=== PATIENT | male | born 1970 | race Caucasian/White ===

== ENCOUNTER 2025-01-16 09:27 | Observation (INO) | payer BC ==
[~2025-01-16] VITALS: Ht 180.3 cm; Wt 89.1 kg
[2025-01-16 10:18] LABS: BASOPHILS ABSOLUTE AUTO 0.05 K/mm3 (0.00-0.23); BASOPHILS PERCENT AUTO 1 % (0-2); EOSINOPHILS ABSOLUTE AUTO 0.13 K/mm3 (0.00-0.68); EOSINOPHILS PERCENT AUTO 2 % (0-6); Hematocrit 50.0 % (37.0-53.0); Hemoglobin 16.4 g/dL (13.5-17.5); IMMATURE GRAN ABSOLUTE AUTO 0.02 K/mm3 (0.00-0.10); IMMATURE GRAN PERCENT AUTO 0 % (0-1); LYMPHOCYTES ABSOLUTE AUTO 1.95 K/mm3 (0.84-5.20); LYMPHOCYTES PERCENT AUTO 30 % (21-46); MONOCYTES ABSOLUTE AUTO 0.66 K/mm3 (0.16-1.47); MONOCYTES PERCENT AUTO 10 % (4-13); Mean Corpuscular HGB Conc 32.8 g/dL (31.5-36.5); Mean Corpuscular Volume 88 fL (80-100); NEUTROPHILS ABSOLUTE AUTO 3.74 K/mm3 (1.96-9.15); NEUTROPHILS PERCENT AUTO 57 % (41-73); NRBC ABSOLUTE 0.00 K/mm3 (0.00-0.02); NRBC Auto 0.0 /100 WBC (0.0-0.2); Platelet Count 232 K/mm3 (150-400); RDW Coefficient Variation 14.9 % (11.7-14.2); RDW Standard Deviation 47.9 fL (35.1-46.3)
[2025-01-16 10:44] LABS: Alanine Aminotransfer (ALT/SGP 40.0 U/L (12-78); Albumin, Blood 3.6 g/dL (3.4-5.0); Albumin/Globulin Ratio 1.0 (0.8-1.8); Anion Gap 7.0 mmol/L (3-11); Aspartate Aminotrans (AST/SGOT 49.0 U/L (12-37); Bilirubin, Total 1.2 mg/dL (0.1-1.0); Blood Urea Nitrogen 20.0 mg/dL (8-24); CO2, Blood 26.0 mmol/L (21-32); Calcium, Blood 8.3 mg/dL (8.5-10.1); Chloride, Blood 113.0 mmol/L (98-108); Creatinine, Blood 1.19 mg/dL (0.60-1.20); Globulin, Blood 3.6 g/dL (2.2-4.0); Glucose, Blood 116.0 mg/dL (70-99); Potassium, Blood 4.4 mmol/L (3.5-5.5); Sodium, Blood 142.0 mmol/L (136-145); Total Protein, Blood 7.2 g/dL (6.4-8.2)
[2025-01-16 12:19] LABS: Prothrombin Time Results 11.7 Sec (9.7-11.5)
[2025-01-16] MEDS ORDERED: Albuterol 2.5 MG/3 ML VIAL INH PRN (14:00)
[2025-01-16 15:29] VITALS: BP 132/91
[2025-01-16 15:35] LABS: Influenza A, PCR NEGATIVE (NEGATIVE); Influenza B, PCR NEGATIVE (NEGATIVE); Resp Syncytial Virus, PCR NEGATIVE (NEGATIVE); SARS-Cov-2 (COVID-19) PCR, MMC NEGATIVE (NEGATIVE)
[2025-01-16] MEDS ORDERED: Furosemide 10 MG / ML 2ML Vial IV SCH (18:00)
--- NOTE | 2025-01-16 18:27 | NUR ---
ADMISSION NOTE/SHIFT SUMMARY PATIENT A/OX4, ABLE TO MAKE NEEDS KNOWN. PLEASANT AND COOPERATIVE WITH CARE. FAMILY AT BEDSIDE THROUGHOUT ADMISSION QUESTIONS AND THROUGHOUT SHIFT. STRESS TEST INITIATED THIS EVENING, PLAN TO BE NPO AT MIDNIGHT TONIGHT FOR CONTINUATION OF STRESS TEST. PATIENT STARTED ON LASIX, METORPOROLOL AND NORVASC TODAY. TELEMETRY IN PLACE, SINUS TACH. PATIENT DENIES CHEST PAIN BUT STATES FEELS HIS HEART RACING WHEN AMBULATING LONGER DISTANCES ALSO BECOME SOB. ADMISSION DOCUMENTATION COMPLETED. PATIENT STATES HE HAS A ROOMMMATE IN HIS HOME IN [place], HOWEVER HAS CURRENTLY BEEN RESIDING WITH HIS PARENTS HERE IN [facility]. NO OTHER CONCERNS AT THIS TIME, WILL CONTINUE TO MONITOR.
[2025-01-16 19:22] VITALS: BP 109/82
[2025-01-17 00:06] VITALS: BP 95/72
[2025-01-17 04:38] VITALS: BP 82/59
[2025-01-17] MEDS ORDERED: NS 500 ML IV ONE (04:50)
[2025-01-17 05:46] VITALS: BP 88/73
[2025-01-17 05:54] LABS: BASOPHILS ABSOLUTE AUTO 0.06 K/mm3 (0.00-0.23); BASOPHILS PERCENT AUTO 1 % (0-2); EOSINOPHILS ABSOLUTE AUTO 0.09 K/mm3 (0.00-0.68); EOSINOPHILS PERCENT AUTO 1 % (0-6); Hematocrit 52.4 % (37.0-53.0); Hemoglobin 17.0 g/dL (13.5-17.5); IMMATURE GRAN ABSOLUTE AUTO 0.04 K/mm3 (0.00-0.10); IMMATURE GRAN PERCENT AUTO 0 % (0-1); LYMPHOCYTES ABSOLUTE AUTO 2.27 K/mm3 (0.84-5.20); LYMPHOCYTES PERCENT AUTO 23 % (21-46); MONOCYTES ABSOLUTE AUTO 0.94 K/mm3 (0.16-1.47); MONOCYTES PERCENT AUTO 10 % (4-13); Mean Corpuscular HGB Conc 32.4 g/dL (31.5-36.5); Mean Corpuscular Volume 89 fL (80-100); NEUTROPHILS ABSOLUTE AUTO 6.40 K/mm3 (1.96-9.15); NEUTROPHILS PERCENT AUTO 65 % (41-73); NRBC ABSOLUTE 0.00 K/mm3 (0.00-0.02); NRBC Auto 0.0 /100 WBC (0.0-0.2); Platelet Count 223 K/mm3 (150-400); RDW Coefficient Variation 14.8 % (11.7-14.2); RDW Standard Deviation 48.3 fL (35.1-46.3)
[2025-01-17 06:10] LABS: LDL/HDL RATIO 0.9; Very Low Density Lipoprot Chol 17 mg/dL (6-32)
[2025-01-17 06:11] LABS: Alanine Aminotransfer (ALT/SGP 83 U/L (12-78); Albumin, Blood 3.4 g/dL (3.4-5.0); Albumin/Globulin Ratio 1.0 (0.8-1.8); Anion Gap 11 mmol/L (3-11); Aspartate Aminotrans (AST/SGOT 98 U/L (12-37); Bilirubin, Total 1.2 mg/dL (0.1-1.0); Blood Urea Nitrogen 29 mg/dL (8-24); CHOL/HDL RATIO 2.2; CO2, Blood 22 mmol/L (21-32); Calcium, Blood 8.7 mg/dL (8.5-10.1); Chloride, Blood 112 mmol/L (98-108); Cholesterol 137 mg/dL (50-200); Creatinine, Blood 1.34 mg/dL (0.60-1.20); Globulin, Blood 3.5 g/dL (2.2-4.0); Glucose, Blood 94 mg/dL (70-99); HDL Cholesterol 63 mg/dL (>39); Low Density Lipoprotein Chol 57 mg/dL (0-110); Potassium, Blood 4.6 mmol/L (3.5-5.5); Sodium, Blood 140 mmol/L (136-145); Total Protein, Blood 6.9 g/dL (6.4-8.2); Triglycerides 87 mg/dL (30-160)
--- NOTE | 2025-01-17 06:25 | NUR ---
SUMMARY ALERT & ORIENTED. DENIES CHEST PAIN OR ANY CARDIAC S/SX. CN AWARED OF TROP INC BACK TO 236 BUT ASYMPTOMATIC. SLEPT WELL AT NIGHT W/ NO CONCERNS. ON TELE-NSR ON MONITOR CONSISTENTLY THROUGHOUT. HYPOTENSIVE AT 4AM, NOTIFIED DR REID, NS 500 RAN FOR 30MINS, THEN RECHECK BP MAP STABLE AND ASYMPTOMATIC. NO DIZINESS/SOB WHEN LOWERED HEAD OF BED.
[2025-01-17 08:04] VITALS: BP 89/73
[2025-01-17] MEDS ORDERED: Enoxaparin 40 MG/0.4 ML SYR SC SCH (09:00)
[2025-01-17 09:33] VITALS: BP 95/72
[2025-01-17 11:35] VITALS: BP 91/70
[2025-01-17] MEDS ORDERED: METO25 PO (13:52)
--- NOTE | 2025-01-17 14:58 | NUR ---
DISCHARGE SUMMARY/SHIFT SUMMARY: PATIENT DISCHARGED HOME AND EDUCATED ON IMPORTANCE OF MAKING APPOINTMENT WITH PCP SOON POSSIBLE. REFERENCED DR. ORDOÑEZ AND MENTIONED HE NEEDS TO FOLLOW-UP WITH HIM IN [place]URDS TO PULMONARY ISSUES. PATIENT AND FAMILY MEMBERS VERBALIZED UNDERSTANDING. PATIENT ALSO EDUCATED ON IMPORTANCE OF NEW PRESCRIPTION AND FREQUENCY, ROUTE. BELONGINGS COLLECTED AND GIVEN BACK TO PATIENT DURING DISCHARGE. THIS PATIENT HAD STRESS TEST PERFORMED EARLIER THIS AM. PATIENT TOLERATED WELL WITH MINIMAL COMPLAINTS OF LIGHTHEADEDNESS. UPON ASCULTATION S1, S2 HEARD AND BREATH SOUNDS CLEAR IN ALL REGIONS. HEART RYHTHM NOTED TO BE NSR c BBB, RATE OF 65. BOWEL SOUNDS NOTED TO BE HYPERACTIVE. TOXICOLOGY SAMPLE WAS NOT ABLE TO BE COMPLETED D/T PATIENT NOT BEING ABLE TO VOID BEFORE DISCHARGE. PATIENT CONTINUES TO BE PLEASANT AND COOPERATIVE WITH CARE.
== END 2025-01-17 14:22 | disposition home or self-care (01) ==
LOC: ER 09:27 → MEDS 09:28
PROVIDERS: Emergency Medicine; ADMIT Internal Medicine
DX: I50.20 Unspecified systolic (congestive) heart failure (principal); I27.20 Pulmonary hypertension, unspecified; R03.0 Elevated blood-pressure reading, without diagnosis of hypertension; R06.01 Orthopnea; R00.0 Tachycardia, unspecified; Z86.16 Personal history of COVID-19; Z87.891 Personal history of nicotine dependence; Z88.0 Allergy status to penicillin
CPT/HCPCS: 36415; 71046; 78452; 80053; 80061; 83735; 83880; 84443; 84484; 85025; 85379; 85610; 85730; 87637; 93005; 93010; 93017; 93306; 94760; 96372; 96374; 99285-25; A9270; A9500; G0378; J1650; J1938; J2785; J7040

== ENCOUNTER 2025-04-06 08:52 | Day surgery (SDC) | payer BC ==
[2025-04-06] VITALS (11 sets, daily range): BP systolic 129–146; BP diastolic 91–110
[~2025-04-06] VITALS: Ht 182.9 cm; Wt 89.0 kg
[~2025-04-06 08:52] MED LIST: FURO20 PO; Heparin Sodium 1000 Units/ML 10ML MDV ONE; METO25 PO; NS 1,000 ML IV ONE; NS 250 ML IV ONE; Nitroglycerin 2 MG/20 ML BTL ONE; Verapamil HCL 2.5 MG/ML 2ML Injection ONE
[2025-04-06 09:33] LABS: Hematocrit 49.5 % (37.0-53.0); Hemoglobin 16.7 g/dL (13.5-17.5); Mean Corpuscular HGB Conc 33.7 g/dL (31.5-36.5); Mean Corpuscular Volume 86 fL (80-100); NRBC ABSOLUTE 0.00 K/mm3 (0.00-0.02); NRBC Auto 0.0 /100 WBC (0.0-0.2); Platelet Count 210 K/mm3 (150-400); RDW Coefficient Variation 14.0 % (11.7-14.2); RDW Standard Deviation 43.2 fL (35.1-46.3)
[2025-04-06] MEDS ORDERED: Adenosine 3 MG/ML 30 ML Vial ONE (09:35)
[2025-04-06] MEDS ORDERED: NS 200 ML IV ONE (09:36)
[2025-04-06 09:55] LABS: Anion Gap 8.0 mmol/L (3-11); Blood Urea Nitrogen 20.0 mg/dL (8-24); CO2, Blood 21.0 mmol/L (21-32); Calcium, Blood 8.6 mg/dL (8.5-10.1); Chloride, Blood 113.0 mmol/L (98-108); Creatinine, Blood 1.04 mg/dL (0.60-1.20); Glucose, Blood 95.0 mg/dL (70-99); Potassium, Blood 3.9 mmol/L (3.5-5.5); Sodium, Blood 138.0 mmol/L (136-145)
[2025-04-06 10:01] LABS: Prothrombin Time Results 12.1 Sec (9.7-11.5)
[2025-04-06] MEDS ORDERED: NS 1,000 ML IV ONE (10:03)
[2025-04-06] MEDS ORDERED: FentaNYL Citrate 50 MCG/ML 2 ML Injection ONE (10:05)
[2025-04-06] MEDS ORDERED: Midazolam HCl 1MG / ML 2ML Vial ONE (10:06)
--- NOTE | 2025-04-06 11:05 | NUR ---
ASSUMED CARE OF PT. PT AWAKE AND ORIENTED, CONVERSING APPROPRIATELY; DENIES CP POST PROCEDURE. MONITOR SR 80'S, B/P 136/95, SPO2 92 % RA. R RADIAL SITE NO SWELLING/HEMATOMA, TR BAND IN PLACE; RUE: POSITIVE PLEUTH POST TR BAND PLACEMENT. R AC NO SWELLING/HEMATOMA, MARLENI AND TEGADERM DRSG INTACT.
--- NOTE | 2025-04-06 11:55 | NUR ---
PT AMB TO BATHROOM, GAIT STEADY; SITE UNCHANGED WITH ACTIVITY.
[2025-04-06] MEDS ORDERED: TADA10TA PO (11:56)
--- NOTE | 2025-04-06 12:21 | NUR ---
10CC AIR REMOVED FROM R WRIST TR BAND. NEG BLEEDING OR SWELLING.
--- NOTE | 2025-04-06 12:30 | NUR ---
TR BAND FULLY DEFLATED, R RADIAL NO SWELLING/HEMATOMA.
--- NOTE | 2025-04-06 13:20 | NUR ---
PT DRESSED SELF WITHOUT ISSUES, SITES UNCHANGED. TR BAND REMOVED, CLOTH DOT AND WRIST IMMMOBILZER IN PLACE; IV REMOVED-CANNULA INTACT.
--- NOTE | 2025-04-06 13:32 | NUR ---
PT RECEIVED DISCHARGE INSTRUCTIONS, MED LIST AND AFTER CARE INSTRUCTIONS; VERBALIZED GOOD UNDERSTANDING. PT LEFT FACILITY VIA AMB, CONDITION STABLE.
== END 2025-04-06 13:32 | disposition home or self-care (01) ==
LOC: ORSCMMR 08:52 → MHTC 08:52 → ORSCMMR 08:53 → MHTC 09:00
PROVIDERS: Student in an Organized Health Care Education/Training Program
DX: I27.20 Pulmonary hypertension, unspecified (principal); Z88.0 Allergy status to penicillin; Z86.16 Personal history of COVID-19
CPT/HCPCS: 76937; 80048; 85027; 85610; 93456; 93458; 93460; 94060; 94726; 94729; C1769; C1887; C1894; J0153; J1644; J2250; J3010; J7030; J7050; Q9967